=== PATIENT | female | born 1955 | race Caucasian/White ===

== ENCOUNTER 2018-12-15 12:58 | Emergency (ER) | payer OTHER ==
[~2018-12-15] VITALS: Ht 160 cm; Wt 65.8 kg
[~2018-12-15 12:58] MED LIST: ATORVASTATIN CA40 MG; CLORAZ DIPOT; DIOVAN; DIOVAN160 M1; FENOFIBRATE134 MG; HYDROCHLORIDE; JENTADUETO XR1 EACH; PNEU16DI2; TARKA 4/2401 BOTTLE PO
[2018-12-15] MEDS ORDERED: AVAPRO300 MG (13:25)
[2018-12-15] MEDS ORDERED: GEMFIBROZIL600 MG (13:26)
[2018-12-15] MEDS ORDERED: CARDIZEM CD180 M1 (13:26)
[2018-12-15] MEDS ORDERED: TOPROL XL100 M1 (13:26)
[2018-12-15] MEDS ORDERED: CATAPRES0.3 M1 (13:27)
[2018-12-15] MEDS ORDERED: LOPRESSOR HCT1 EACH (13:27)
[2018-12-15] MEDS ORDERED: LIPITOR40 MG (13:27)
[2018-12-15] MEDS ORDERED: METFORMIN HCL850 MG (13:27)
== END 2018-12-15 21:03 | disposition home or self-care (01) ==
LOC: ER 12:58
DX: E11.65 Type 2 diabetes mellitus with hyperglycemia (principal)

== ENCOUNTER 2022-12-26 16:19 | Emergency (ER) | payer OTHER ==
[~2022-12-26] VITALS: Ht 160 cm; Wt 65.8 kg
[~2022-12-26 16:19] MED LIST changes: +AVAPRO300 MG; +CARDIZEM CD180 M1; +CATAPRES0.3 M1; +GEMFIBROZIL600 MG; +LIPITOR40 MG; +LOPRESSOR HCT1 EACH; +METFORMIN HCL850 MG; +TOPROL XL100 M1
[2022-12-26] MEDS ORDERED: INSULINA (17:14)
== END 2022-12-26 19:45 | disposition home or self-care (01) ==
LOC: ER 16:19
DX: R10.30 Lower abdominal pain, unspecified (principal); E11.9 Type 2 diabetes mellitus without complications; Z79.84 Long term (current) use of oral hypoglycemic drugs; I10 Essential (primary) hypertension

== ENCOUNTER 2023-05-05 19:34 | Emergency (ER) | payer OTHER ==
[~2023-05-05] VITALS: Ht 160 cm; Wt 65.8 kg
[~2023-05-05 19:34] MED LIST changes: +INSULINA
== END 2023-05-05 22:17 | disposition home or self-care (01) ==
LOC: ER 19:34
DX: R12 Heartburn (principal)
CPT/HCPCS: 36415; 96365; 99284; J3490

== ENCOUNTER 2023-07-25 14:18 | Emergency (ER) | payer OTHER ==
[~2023-07-25] VITALS: Ht 160 cm; Wt 61.2 kg
[2023-07-25] MEDS ORDERED: PLAVIX75 MG PO (14:34)
[2023-07-25] MEDS ORDERED: IRBESARTAN-HCT1 EAC1 PO (14:35)
== END 2023-07-25 15:12 | disposition home or self-care (01) ==
LOC: ER 14:18
DX: I10 Essential (primary) hypertension (principal); E11.9 Type 2 diabetes mellitus without complications; Z86.79 Personal history of other diseases of the circulatory system